=== PATIENT | male | born 2000 | race African-American/Black ===

== ENCOUNTER 2021-09-05 12:10 | Emergency (ER) | payer OTHER ==
[~2021-09-05] VITALS: Ht 182.9 cm; Wt 107.0 kg
[2021-09-05 12:15] VITALS: BP 0/0
== END 2021-09-05 14:14 | disposition left against medical advice (07) ==
LOC: ER 12:29
DX: Z53.21 Procedure and treatment not carried out due to patient leaving prior to being seen by health care provider (principal)
CPT/HCPCS: 99283